=== PATIENT | female | born 1965 | race Caucasian/White ===

== ENCOUNTER 2021-11-29 10:15 | Emergency (ER) | payer OTHER ==
[2021-11-29] MEDS ORDERED: IBUPROFEN 400 MG TABLET (FP) PO ONE ×2 (10:27→10:31)
[2021-11-29 10:28] VITALS: BP 107/58; PULSE 74; TEMP 97.2; BMI 20.7
== END 2021-11-29 11:31 | disposition home or self-care (01) ==
LOC: FER 10:15
DX: S89.92XA Unspecified injury of left lower leg, initial encounter (principal); M25.562 Pain in left knee; W07.XXXA Fall from chair, initial encounter
CPT/HCPCS: 73562-TC-LT-FY; 99283-25

== ENCOUNTER 2022-05-10 10:26 | Emergency (ER) | payer OTHER ==
[2022-05-10 10:41] VITALS: BP 105/80; PULSE 82; RESP 18; TEMP 97.4; BMI 20.6
[2022-05-10] MEDS ORDERED: IBUPROFEN 600 MG TABLET (FP) PO ONE ×2 (10:56→11:06)
== END 2022-05-10 13:05 | disposition home or self-care (01) ==
LOC: FER 10:26
DX: S93.602A Unspecified sprain of left foot, initial encounter (principal); Y99.8 Other external cause status
CPT/HCPCS: 73610-TC-LT-FY; 73630-TC-LT; 99283-25

== ENCOUNTER 2022-05-13 13:25 | Emergency (ER) | payer OTHER ==
[2022-05-13] MEDS ORDERED: LIDOCAINE HCL 1%, 10 MG/ML (50 mL VIAL) SQ ONE (14:50)
[2022-05-13] MEDS ORDERED: LIDOCAINE HCL 1%, 10 MG/ML (20ML VIAL) ONE (15:00)
[2022-05-13 15:16] VITALS: BP 148/88; PULSE 88; RESP 18; TEMP 98.8; BMI 21.9
== END 2022-05-13 16:22 | disposition home or self-care (01) ==
LOC: FER 13:25
PROC: 0HCNXZZ Extirpation of Matter from Left Foot Skin, External Approach (ICD-10-PCS; principal; 2022-05-13)
DX: M79.5 Residual foreign body in soft tissue (principal); L08.89 Other specified local infections of the skin and subcutaneous tissue
CPT/HCPCS: 73630-TC-RT-FY; 87070; 87186; 87205; 99283-25

== ENCOUNTER 2025-02-16 06:15 | Day surgery (SDC) | payer OTHER ==
[2025-01-23 11:47] VITALS: BMI 21.4
[2025-02-16 10:40] VITALS: TEMP 97.8
[2025-02-16 11:12] VITALS: RESP 13
[2025-02-16 11:13] VITALS: BP 105/48; PULSE 64
== END 2025-02-16 11:24 | disposition home or self-care (01) ==
LOC: JASU-ENDO 06:15
PROVIDERS: ATTEND Internal Medicine Gastroenterology
PROC: 0DB78ZX Excision of Stomach, Pylorus, Via Natural or Artificial Opening Endoscopic, Diagnostic (ICD-10-PCS; 2025-02-16)
PROC: 0DJD8ZZ Inspection of Lower Intestinal Tract, Via Natural or Artificial Opening Endoscopic (ICD-10-PCS; principal; 2025-02-16 10:00)
DX: Z12.11 Encounter for screening for malignant neoplasm of colon (principal); K64.8 Other hemorrhoids; K29.40 Chronic atrophic gastritis without bleeding
CPT/HCPCS: 88305-TC; 88342-TC